=== PATIENT | male | born 1935 | race Caucasian/White ===

== ENCOUNTER 2017-02-06 17:21 | Emergency (ER) | payer MEDICARE, OTHER ==
[2017-02-06 17:32] VITALS: BP 126/80
--- NOTE | 2017-02-06 18:21 | UC ---
Lower Extremity/Ankle HPI - HPI Summary HPI Summary: Pt reported L calf pain this morning. has noticed that the leg is slightly more swollen than normal -- has peripheral edema and diabetes, so he normally has swollen legs. Now pt denies much pain, has dementia so he cannot describe his pain from earlier. - History of Current Complaint Chief Complaint: UCLowerExtremity Stated Complaint: SHARP LEFT LEG PAIN (PRIOR BLOOD CLOTS) Time Seen by Provider: 02/06/17 17:53 Hx Obtained From: Patient Onset/Duration: Gradual Onset Severity Initially: Mild Severity Currently: Mild Aggravating Factor(s): Nothing Able to Bear Weight: Yes - Allergies/Home Medications Allergies/Adverse Reactions: Allergies Allergy/AdvReac Type Severity Reaction Status Date / Time Penicillins [PCN] Allergy Swelling Verified 02/06/17 17:33 Of Face,Lips,& Throat PMH/Surg Hx/FS Hx/Imm Hx Cardiovascular History: Cardiac Disease, Hypertension, Deep Vein Thrombosis Respiratory History: COPD, Asthma - Surgical History Surgical History: None - Family History Known Family History: Positive: Cardiac Disease, Hypertension, Diabetes - Social History Lives: With Family Alcohol Use: Rare Alcohol Amount: 1 GLASS WINE Substance Use Type: None Smoking Status (MU): Never Smoked Tobacco - Immunization History Most Recent Influenza Vaccination: [id number] Most Recent Tetanus Shot: UTD Review of Systems Constitutional: Negative Skin: Negative Eyes: Negative ENT: Negative Respiratory: Negative Cardiovascular: Negative Gastrointestinal: Negative Genitourinary: Negative Motor: Negative Neurovascular: Negative Musculoskeletal: Calf Tenderness, Edema Neurological: Negative Psychological: Negative All Other Systems Reviewed And Are Negative: Yes Physical Exam Triage Information Reviewed: Yes Appearance: Well-Appearing, Obese Vital Signs: Initial Vital Signs Temp 96.7 F 02/06/17 17:29 Pulse 84 02/06/17 17:29 Resp 20 02/06/17 17:29 BP 126/80 02/06/17 17:29 Pulse Ox 100 02/06/17 17:29 Vital Signs Reviewed: Yes Eye Exam: Normal Eyes: Positive: Conjunctiva Clear ENT Exam: Normal ENT: Positive: Normal ENT inspection, Hearing grossly normal, Pharynx normal, TMs normal Neck exam: Normal Neck: Positive: Supple, Nontender, No Lymphadenopathy Respiratory Exam: Normal Respiratory: Positive: Chest non-tender, Lungs clear, Normal breath sounds, No respiratory distress, No accessory muscle use Cardiovascular Exam: Normal Cardiovascular: Positive: RRR, No Murmur Musculoskeletal Exam: Other - negative yoan sign bilat, no calf tenderness bilat Musculoskeletal: Positive: Strength Intact, Other: - R mid-calf circumference 52cm L mid-calf circumference 54 cm Neurological Exam: Normal Neurological: Positive: Alert Psychological Exam: Normal Lower Extremity Course/Dx - Differential Dx/Diagnosis Provider Diagnoses: peripheral edema Discharge - Discharge Plan Condition: Stable Disposition: HOME Patient Education Materials: Leg Edema (ED) Referrals: Philip Gandhi MD [Primary Care Provider] - Additional Instructions: As we discussed, we are unable to evaluate you for a blood clot today because we do not have ultrasound. At any point if you develop cough, chest pain, bloody sputum, or trouble breathing, please call 911. Since you are already on a blood thinner you are already being treated for a blood clot. Please discuss your symptoms with your home doctor to discuss whether you should be seen in the emergency department or not.
== END 2017-02-06 18:32 | disposition home or self-care (01) ==
LOC: UCEAST 17:21
DX: Z86.718 Personal history of other venous thrombosis and embolism (principal); Z79.01 Long term (current) use of anticoagulants; I10 Essential (primary) hypertension; I25.10 Atherosclerotic heart disease of native coronary artery without angina pectoris
CPT/HCPCS: 99212; G0463